=== PATIENT | female | born 1960 | race Caucasian/White ===

== ENCOUNTER 2017-10-10 13:38 | Emergency (ER) | payer MEDICAID, MEDICARE ==
[2017-10-10 13:55] VITALS: BP 151/83
--- NOTE | 2017-10-10 14:04 | UC ---
Skin Complaint HPI - HPI Summary HPI Summary: Patient presents complaining of a rash to both forearms and notes new rash starting to both of her lower legs. Began about a week ago. Began about 2 days after she had been some weeding. She notes the rash is very itchy and she' s been self treating with topical Benadryl and calamine. She denies any short of breath or wheezing. - History of Current Complaint Chief Complaint: UCSkin Time Seen by Provider: 10/10/17 13:54 Stated Complaint: RASH ON ARMS Hx Obtained From: Patient Onset/Duration: Gradual Onset Timing: Constant Pain Intensity: 0 Aggravating Factor(s): Nothing Alleviating Factor(s): Antihistamines Associated Signs & Symptoms: Negative: Fever - Allergy/Home Medications Allergies/Adverse Reactions: Allergies Allergy/AdvReac Type Severity Reaction Status Date / Time amoxicillin [From Augmentin] Allergy Hives Verified 10/10/17 14:00 clavulanic acid Allergy Hives Verified 10/10/17 14:00 [From Augmentin] Home Medications: Home Medications LevoCETirizine TAB (NF) [Xyzal TAB (NF)] 5 mg PO DAILY 10/10/17 [History Confirmed 10/10/17] diPHENhydraMINE 2% CREAM(NF) [Benadryl 2% CREAM (NF)] 1 applic TOPICAL Q6H 10/10 [History Confirmed 10/10/17] Review of Systems Constitutional: Negative Skin: Rash Eyes: Negative ENT: Negative Respiratory: Negative Cardiovascular: Negative Gastrointestinal: Negative Genitourinary: Negative Motor: Negative Neurovascular: Negative Musculoskeletal: Negative Neurological: Negative Psychological: Negative Is Patient Immunocompromised?: No All Other Systems Reviewed And Are Negative: Yes PMH/Surg Hx/FS Hx/Imm Hx Endocrine History: Dyslipidemia Cardiovascular History: Cardiac Disease, Hypertension GI/ History: Gastroesophageal Reflux - Surgical History Surgical History: Yes Surgery Procedure, Year, and Place: coronary bypass surgery in 1990 [place]. neck surgery ACDF/PCDF in [place]. lumbar decompressive laminectomy L4-L5 Mar 2016. ACD AND PLATE PLACEMENT - Family History Known Family History: Positive: Cardiac Disease, Diabetes - Social History Occupation: Disabled Lives: With Family Alcohol Use: Weekly Alcohol Amount: 1-2 drinks per week Substance Use Type: None Smoking Status (MU): Former Smoker Type: Cigarettes Amount Used/How Often: PACK A DAY Length of Time of Smoking/Using Tobacco: 35 years Have You Smoked in the Last Year: No When Did the Patient Quit Smoking/Using Tobacco: 2007 - Immunization History Most Recent Influenza Vaccination: 2016 Most Recent Tetanus Shot: unk Most Recent Pneumonia Vaccination: never Vaccination Up to Date: Yes Physical Exam Triage Information Reviewed: Yes Appearance: Well-Appearing Vital Signs: Initial Vital Signs Temp 97.5 F 10/10/17 13:50 Pulse 81 10/10/17 13:50 Resp 16 10/10/17 13:50 BP 151/83 10/10/17 13:50 Pulse Ox 98 10/10/17 13:50 Eyes: Positive: Conjunctiva Clear ENT: Positive: Pharynx normal, TMs normal. Negative: Nasal congestion, Nasal drainage Neck: Positive: Supple, Nontender, No Lymphadenopathy Respiratory: Positive: Lungs clear, Normal breath sounds Cardiovascular: Positive: RRR, No Murmur Abdomen Description: Positive: Nontender, No Organomegaly, Soft Bowel Sounds: Positive: Present Musculoskeletal: Positive: ROM Intact Neurological: Positive: Alert Psychological: Positive: Age Appropriate Behavior Skin Exam: Normal Skin: Positive: rashes - [place] rash to forearms. Some areas are linear. Some areas are excoriated. Similar rash to both shins. Patient's hands and other areas are covered by clothing are spared. No warmth or drainage. No burrows. Course/Dx - Course Course Of Treatment: Rash is consistent with contact dermatitis. Given duration we will treat with weaning steroid from a Medrol Dosepak. No concern for secondary infection. - Diagnoses Provider Diagnoses: Contact dermatitis forearms and lower legs Discharge - Sign-Out/Discharge Documenting (check all that apply): Discharge/Admit/Transfer - Discharge Plan Condition: Stable Disposition: HOME Prescriptions: methylPREDNISolone [Medrol Dosepak 4 MG*] 0 mg PO .SEE CLARK INSTRUCTION #1 tab Patient Education Materials: Contact Dermatitis (DC) Referrals: Noel Tomas MD [Primary Care Provider] - 7 Days - Billing Disposition and Condition Condition: STABLE Disposition: Home
== END 2017-10-10 14:10 | disposition home or self-care (01) ==
LOC: UCCORT 13:38
DX: L25.5 Unspecified contact dermatitis due to plants, except food (principal); E78.5 Hyperlipidemia, unspecified; I11.9 Hypertensive heart disease without heart failure; K21.9 Gastro-esophageal reflux disease without esophagitis; Z95.5 Presence of coronary angioplasty implant and graft; Z88.1 Allergy status to other antibiotic agents; Z88.0 Allergy status to penicillin; Z82.49 Family history of ischemic heart disease and other diseases of the circulatory system; Z83.3 Family history of diabetes mellitus; Z87.891 Personal history of nicotine dependence
CPT/HCPCS: 99212; G0463

== ENCOUNTER → 2018-05-16 10:35 | Day surgery (SDC) | payer MEDICARE, MEDICAID ==
[~2018-05-16 10:35] MED LIST: Buffered Lidocaine 1% SYRIN* 1 ML/SYRINGE INTRADERM ONE; Clindamycin 900 MG/D5W BAG(*) 900 MG/50 ML BAG IVPB ONE; DiMENhydriNATE IV* 50 MG/ML VIAL IV PUSH PRN; Lactated Ringers 1000 ML Bag* 1,000 ML IV SCH; Lidocaine 1% INJ* 10 MG/ML 30 ML SDV ONE; Midazolam* 1 MG/ML 5 ML VIAL (5 MG) ONE; Morphine VIAL* 4 MG/ML VIAL (1 ml vial) IV PRN; Naloxone* 0.4 MG/ML 1 ML VIAL IV PRN; Ondansetron INJ* 2 MG/ML VIAL IV PRN; PROCHLORPERAZINE INJ 5 MG/ML 2 ML VIAL IV PRN; Propofol* 10 MG/ML 20 ML BTL ONE; ROPIVACAINE 5 MG/ML 30 ML BTL (0.5%) ONE; Ropivacaine* 2 MG/ML 20 ML VIAL (0.2%) ONE; fentaNYL* 50 MCG/ML 2 ML VIAL (100 MCG VIAL) IV PRN; fentaNYL* 50 MCG/ML 2 ML VIAL (100 MCG VIAL) ONE; oxyCODONE/Acetamin 5/325 MG* TAB PO PRN
[2018-05-16 15:04] VITALS: BP 122/92
--- NOTE | 2018-05-16 20:34 | OP ---
DATE OF OPERATION: 05/16/18 - [facility] DATE OF : 56 SURGEON: Jose Manuel Ahumada MD ASSISTANT TO THE PRESIDENT: None. ANESTHESIOLOGIST: Dr. Beasley. ANESTHESIA: Local MAC. PRE-OP DIAGNOSIS: Post laminectomy syndrome. POST-OP DIAGNOSIS: Post laminectomy syndrome. OPERATIVE PROCEDURE: Percutaneous dorsal column stimulator trial lead placement. BRIEF PREOPERATIVE NOTE: The patient is a 58-year-old female who has been followed in the [facility] for post-laminectomy syndrome. The patient had not done well with conservative care for long-term relief of her pain, so it was decided to proceed with dorsal column stimulator as a means to manage her pain. The patient and I had discussed in the office as well as again today the procedure in detail, the risks, benefits, and alternatives including the risks of postdural puncture headache, bleeding, infection, failure of the device to work, and nerve injury. After discussing these risks, benefits, and alternatives, informed consent was obtained. DESCRIPTION OF PROCEDURE: The patient was brought to the operative suite, placed prone on the operative table. Her back was prepped and draped in the usual sterile fashion. Using fluoroscopy, I identified the T12-L1 interspace. I then anesthetized the skin and subcutaneous tissue over the pedicle of T2 on the right and left sides using 0.2% ropivacaine mixed with 1% lidocaine. Using an 11-blade, a skin hanna was made. I then used a 14-gauge Coude epidural needle to identify the epidural space using loss of resistance to air technique. There was no CSF, blood, or paresthesias noted. There was negative aspiration. A 16-contact [employer] lead was then passed into the epidural space and guided to the right of midline covering the T7, 8, and 9 vertebral bodies. A lateral fluoroscopic view was obtained which showed good posterior placement in the epidural space. I then made another skin hanna with an 11-blade to the left of midline over the L2 pedicle, and again using a 14-gauge Coude epidural needle, I directed under fluoroscopic guidance to the T12- L1 interspace and identified the epidural space using loss of resistance to air technique. There was no CSF, blood, or paresthesias noted. There was negative aspiration. I proceeded to pass a 16-contact [employer] lead into the epidural space and guided it parallel to the other lead covering the T7, 8, and 9 vertebral bodies. A lateral fluoroscopic view was taken which showed good posterior placement in the epidural space. A stimulation was then done with the [employer] customer solutions representative and good coverage was noted with the leads as they were placed. The stylets and needles were withdrawn. The anchors were placed over the leads and sutured to the skin using 2-0 Prolene sutures. The 0-silk suture was then used to cinch the anchor and boot together. Steri-Strips were applied. Sterile dressing placed over the leads and a large Tegaderm was placed to cover the wires and extensions. The patient was then brought to the recovery area where her stimulator will be programmed by the [employer] customer solutions representative. She will follow up with us in the office as scheduled. She will call with any questions or concerns before that time. [id number]/[facility] #: [id number] AMRITA
== END | disposition home or self-care (01) ==
LOC: OR 10:35
PROVIDERS: ATTEND Anesthesiology Pain Medicine
DX: M96.1 Postlaminectomy syndrome, not elsewhere classified (principal); M54.16 Radiculopathy, lumbar region; I10 Essential (primary) hypertension; F41.8 Other specified anxiety disorders; E78.00 Pure hypercholesterolemia, unspecified; K21.9 Gastro-esophageal reflux disease without esophagitis; I25.10 Atherosclerotic heart disease of native coronary artery without angina pectoris; I25.2 Old myocardial infarction; Z95.1 Presence of aortocoronary bypass graft
CPT/HCPCS: 76000; C1897; J2250; J2704; J2795; J3010

== ENCOUNTER 2018-07-27 11:23 | Day surgery (SDC) | payer MEDICARE, MEDICAID ==
[~2018-07-27 11:23] MED LIST changes: -Clindamycin 900 MG/D5W BAG(*) 900 MG/50 ML BAG IVPB ONE; +Dexamethasone IV* 4 MG/ML 1 ML (4 MG) IV SLOW PU ONE; -DiMENhydriNATE IV* 50 MG/ML VIAL IV PUSH PRN; +Famotidine IV* 10 MG/ML 2 ML (20 mg) IV ONE; -Lidocaine 1% INJ* 10 MG/ML 30 ML SDV ONE; -Midazolam* 1 MG/ML 5 ML VIAL (5 MG) ONE; -Morphine VIAL* 4 MG/ML VIAL (1 ml vial) IV PRN; -Naloxone* 0.4 MG/ML 1 ML VIAL IV PRN; -Ondansetron INJ* 2 MG/ML VIAL IV PRN; -PROCHLORPERAZINE INJ 5 MG/ML 2 ML VIAL IV PRN; -Propofol* 10 MG/ML 20 ML BTL ONE; -ROPIVACAINE 5 MG/ML 30 ML BTL (0.5%) ONE; -Ropivacaine* 2 MG/ML 20 ML VIAL (0.2%) ONE; -fentaNYL* 50 MCG/ML 2 ML VIAL (100 MCG VIAL) IV PRN; -fentaNYL* 50 MCG/ML 2 ML VIAL (100 MCG VIAL) ONE; -oxyCODONE/Acetamin 5/325 MG* TAB PO PRN
[2018-07-27] MEDS ORDERED: Famotidine IV* 10 MG/ML 2 ML (20 mg) ONE (12:03)
[2018-07-27] MEDS ORDERED: Dexamethasone IV* 4 MG/ML 1 ML (4 MG) ONE (12:03)
[2018-07-27] MEDS ORDERED: Buffered Lidocaine 1% SYRIN* 1 ML/SYRINGE INTRADERM ONE (12:03)
[2018-07-27] MEDS ORDERED: Clindamycin 900 MG IVPREMIX(* 900 MG/50 ML SDV IV ONE (12:04)
[2018-07-27] MEDS ORDERED: Vancomycin(*) 1,000 MG VIAL ONE (13:55)
[2018-07-27] MEDS ORDERED: Gentamicin ADULT (*) 40 MG/ML VIAL (2 ML VIAL = 80 MG) ONE (13:55)
[2018-07-27] MEDS ORDERED: ceFAZolin VIAL(*) VIAL ONE (13:55)
[2018-07-27] MEDS ORDERED: Bupivacaine 0.25% SDV PF* 10 ML VIAL INJ ONE (13:56)
[2018-07-27] MEDS ORDERED: Bacitracin INJECTION* 50,000 UNITS ONE (13:56)
[2018-07-27] MEDS ORDERED: KETAMINE HCL* 50 MG/ML 10 ML VIAL ONE (13:58)
[2018-07-27] MEDS ORDERED: fentaNYL* 50 MCG/ML 2 ML VIAL (100 MCG VIAL) ONE (13:58)
[2018-07-27] MEDS ORDERED: Midazolam* 1 MG/ML 5 ML VIAL (5 MG) ONE (13:58)
[2018-07-27] MEDS ORDERED: Lidocaine 1% INJ* 10 MG/ML 30 ML SDV ONE (14:12)
[2018-07-27] MEDS ORDERED: Midazolam* 1 MG/ML 2 ML VIAL (2 MG) ONE (14:36)
[2018-07-27] MEDS ORDERED: Propofol* 10 MG/ML 20 ML BTL ONE ×2 (14:46→16:16)
[2018-07-27] MEDS ORDERED: Lidocaine 2% PF * 5 ML VIAL ONE (14:47)
[2018-07-27] MEDS ORDERED: hydrALAZINE IV* 20 MG/ML VIAL ONE (15:20)
[2018-07-27] MEDS ORDERED: Bupivacaine 0.5%* 50 ML VIAL ONE (16:24)
[2018-07-27 18:35] VITALS: BP 132/86
--- NOTE | 2018-07-28 03:05 | OP ---
CC: Pain Clinic OPERATIVE REPORT: DATE OF OPERATION: 07/27/18 DATE OF : 56 SURGEON: Dr. Jose Manuel Ahumada. ANESTHESIOLOGIST: Dr. Almanza. ANESTHESIA: Local MAC. PRE-OP DIAGNOSIS: Postlaminectomy syndrome. POST-OP DIAGNOSIS: Postlaminectomy syndrome. OPERATIVE PROCEDURE: Permanent placement of dorsal column stimulator leads and generator. BLOOD LOSS: Minimal. INDICATIONS: The patient is a 58-year-old female who is scheduled today to undergo permanent dorsal column stimulator placement for postlaminectomy syndrome. The patient did very well with dorsal colu mn stimulator trial and is scheduled today to undergo the procedure. Risks, benefits, and alternativ es were discussed with her. Informed consent was obtained. The risks of post dural puncture headache , bleeding, infection, hematoma, failure of the device to work, nerve injury were all discussed with the patient and she was in agreement to proceed. DESCRIPTION OF PROCEDURE: The patient was brought to the operative suite, placed prone on the operat venice table. Her back was prepped and draped in the usual sterile fashion. Using fluoroscopy, I ident ified the L1-2 spinous processes and anesthetized the skin and subcutaneous tissues over that area wi th 1% lidocaine mixed with 0.25% bupivacaine. A 15-blade was used to make a skin incision over the L 1-2 spinous processes. I then dissected down to the spinous processes and hemostasis was obtained wi th electrocautery. Using a 14-gauge Coude needle, I directed under fluoroscopic guidance to the L1-2 interspace. I identified the epidural space using of loss of resistance to air technique. There wa s no CSF, blood, or paresthesias noted. There was negative aspiration. I proceeded to pass the 8-co ntact [employer] Linear lead into that epidural space and guided it to the T7 vertebral body. I, then using another 14-gauge needle, directed under the fluoroscopic guidance to the L1-2 interspa ce. I identified the epidural space using loss of resistance to air technique. There was no CSF, bl ood, or paresthesia noted. There was negative aspiration. I proceeded to pass another [employer] 8-contact Linear lead into the epidural space and guided it to lie parallel to the other lead at the T7 vertebral body. I checked the lateral fluoroscopic projection, which showed posterior placem ent in the epidural space. I then proceeded to test the leads and unfortunately, we were getting sti mulation up in the patient's chest area, so the leads were brought down to lie over the T8 vertebral bodies. Testing was done at that level, which we had good coverage of the patient's pain area across her back. Another lateral fluoroscopic projection was taken, which showed good posterior epidural p lacement of the leads. The leads were then anchored into the interspinous ligament using the [employer] an chor and the white right lead was anchored using the Fix8 fixation system. The left lead was anchore d using 2-0 silk sutures tied to the interspinal ligament. Audible clicks were heard on each anchor as they were tightened. I then focused on the right flank for the IPG pocket placement. The templat e was used to identify the area for the IPG. I then used 1% lidocaine and 0.25% bupivacaine to anest hetize the skin and subcutaneous tissues over the area of the pocket. A 15-blade was used to make a transverse skin incision and dissection was done to create a pocket using blunt dissection, electroca utery, and Metzenbaum scissors. The wound was then packed with antibiotic irrigant sponges. A [employer] device was then used to tunnel to the midline incision from the pocket. The leads were then pas sed into the pocket area and a retention loop was placed at the midline incision using a 0 silk sutur e. I then removed the sponges and electrocautery was used to confirm hemostasis. The generator was t hen placed into the pocket, which was then irrigated copiously with antibiotic irrigant solution as w ell as irrigating the midline incision with antibiotic irrigant. Approximately 250 mg of vancomycin powder was placed in the midline incision as well as the pocket and the midline incision was closed w ith deep 2-0 interrupted Polysorb suture, followed by more superficial interrupted 3-0 Polysorb sutur es, and finally, the skin was closed using a 4-0 Polysorb subcuticular closure. Dermabond was placed followed by Steri-Strips. The pocket incision was closed with interrupted 2-0 Polysorb sutures, fol lowed by more superficial interrupted 3-0 Polysorb sutures, followed by running 4-0 Polysorb subcutic ular skin closure. Dermabond was placed as well as Steri-Strips. Sterile dressings and Tegaderm wer e placed over both wounds and the patient was brought to the recovery room in stable condition, where her stimulator will be programmed by the [employer] customer field representative. She will follow up with us in the Pain Clinic as scheduled for followup visit and she will call with any questions or concern s. [id number]/[facility] #: [id number]
== END 2018-07-27 18:30 | disposition home or self-care (01) ==
LOC: OR 11:23
PROVIDERS: ATTEND Anesthesiology Pain Medicine
DX: M96.1 Postlaminectomy syndrome, not elsewhere classified (principal); I10 Essential (primary) hypertension; E78.5 Hyperlipidemia, unspecified; I25.10 Atherosclerotic heart disease of native coronary artery without angina pectoris; I25.2 Old myocardial infarction; K21.9 Gastro-esophageal reflux disease without esophagitis; F41.8 Other specified anxiety disorders; Z95.1 Presence of aortocoronary bypass graft
CPT/HCPCS: 77003; A9270-GY; C1713; C1778; C1787; C1820; J0360; J0690; J1100; J1580; J2250; J2704; J3010; J3370; J3490

== ENCOUNTER 2019-12-26 10:27 | Inpatient (IN) ==
[~2019-12-26 10:27] MED LIST changes: +Buffered Lidocaine 1% SYRIN 1 ml INTRADERM ONE; -Buffered Lidocaine 1% SYRIN* 1 ML/SYRINGE INTRADERM ONE; +Dexamethasone IV 4 MG/ML VIAL 1 ml VIAL IV SLOW PU ONE; -Dexamethasone IV* 4 MG/ML 1 ML (4 MG) IV SLOW PU ONE; +Famotidine IV 10 MG/ML 2 ml VIAL (20 mg) IV ONE; -Famotidine IV* 10 MG/ML 2 ML (20 mg) IV ONE; -Lactated Ringers 1000 ML Bag* 1,000 ML IV SCH; +Lactated Ringers 1000 ml BAG 1,000 ML IV SCH; +Lidocaine 2% PF 5 ML VIAL ONE; +Midazolam 2 mg/2 ml VIAL 1 mg/ml 2 ml VIAL (2 mg) ONE; +Ondansetron 4 mg VIAL 2 MG/ML 2 ml VIAL ONE; +Propofol 10 MG/ML 20 ML BTL ONE; +Remifentanil 2 MG VIAL ONE; +Rocuronium 50 mg VIAL 10 mg/ml 5 ml VIAL (50 mg) ONE; +Succinylcholine 200 mg VIAL 20 mg/ml 10 ml VIAL (200 mg) ONE; +Vancomycin 1,250 MG in NS 0.9% 250 ml 250 ML IVPB SCH; +fentaNYL 250 mcg/5 ml 50 MCG/ML 5 ml VIAL (250 MCG) ONE
[2019-12-26] MEDS ORDERED: Famotidine IV 10 MG/ML 2 ml VIAL (20 mg) ONE (10:42)
[2019-12-26] MEDS ORDERED: Buffered Lidocaine 1% SYRIN 1 ml INTRADERM ONE (10:42)
[2019-12-26] MEDS ORDERED: Dexamethasone IV 4 MG/ML VIAL 1 ml VIAL ONE ×2 (10:42→12:12)
[2019-12-26] MEDS ORDERED: Bacitracin INJECTION 50,000 UNITS ONE (11:05)
[2019-12-26] MEDS ORDERED: Bupivacaine 0.25% SDV 30 ML ONE (11:05)
[2019-12-26] MEDS ORDERED: Remifentanil 2 MG VIAL ONE (13:42)
[2019-12-26] MEDS ORDERED: HYDROmorphone 1 MG/1 ML SYRINGE ONE ×2 (13:55→16:20)
[2019-12-26] MEDS ORDERED: EPHEDrine (Pressors) 50 MG/ML VIAL ONE (15:47)
[2019-12-26] MEDS ORDERED: HYDROcodone/ACETAMIN 5/325 mg TAB PO PRN ×3 (16:11→17:09)
[2019-12-26] MEDS ORDERED: Naloxone 0.4 mg VIAL 0.4 mg/ml 1 ml VIAL IV PRN (16:11)
[2019-12-26] MEDS ORDERED: Ondansetron 4 mg VIAL 2 MG/ML 2 ml VIAL IV PRN ×2 (16:11)
[2019-12-26] MEDS: HYDROmorphone 1 MG/1 ML SYRINGE IV PRN ×5 (16:20→16:48)
[2019-12-26] MEDS ORDERED: fentaNYL 100 mcg/2 ml 50 MCG/ML VIAL ONE (16:45)
[2019-12-26] MEDS: fentaNYL 100 mcg/2 ml 50 MCG/ML VIAL IV PRN ×4 (16:45→17:06)
[2019-12-26] MEDS ORDERED: HYDROcodone/ACETAMIN 5/325 mg TAB ONE (17:20)
[2019-12-26] MEDS: Magnesium Hydroxide LIQ 30 ML UDC PO PRN (18:49)
[2019-12-26] MEDS: Nystatin TOP POWDER 15 GM BTL TOPICAL SCH ×2 (18:51→21:03)
[2019-12-26] MEDS: Senna TAB 8.6 mg TAB PO SCH (21:02)
[2019-12-27] MEDS: Nystatin TOP POWDER 15 GM BTL TOPICAL SCH ×3 (07:29→21:37)
[2019-12-27] MEDS: Magnesium Hydroxide LIQ 30 ML UDC PO PRN (07:31)
[2019-12-27] MEDS: Senna TAB 8.6 mg TAB PO SCH (21:37)
[2019-12-28] MEDS: Nystatin TOP POWDER 15 GM BTL TOPICAL SCH ×3 (08:10→21:42)
[2019-12-28] MEDS: Magnesium Hydroxide LIQ 30 ML UDC PO PRN (08:18)
[2019-12-28] MEDS: HYDROcodone/ACETAMIN 5/325 mg TAB PO PRN ×3 (12:17→21:40)
[2019-12-28] MEDS: Senna TAB 8.6 mg TAB PO SCH (21:39)
[2019-12-29] MEDS: HYDROcodone/ACETAMIN 5/325 mg TAB PO PRN ×2 (03:54→11:53)
[2019-12-29] MEDS: Nystatin TOP POWDER 15 GM BTL TOPICAL SCH (11:53)
[2019-12-29 12:13] VITALS: BP 103/51
== END 2019-12-29 13:40 | disposition home health service (06) | DRG 460 ==
LOC: AA 10:27 → SSU 17:56
PROVIDERS: ADMIT Neurological Surgery; ATTEND Neurological Surgery

== ENCOUNTER 2020-01-02 12:41 | Observation (INO) ==
[2020-01-02 13:49] LABS: ABS Eosinophils 0.3 10^3/ul (0-0.6); ABS Monocytes 0.9 10^3/ul (0-0.8); ABS Neutrophils 5.5 10^3/ul (1.5-7.7); Eosinophil % 3.6 %; Hematocrit 37 % (35-47); Hemoglobin 12.5 g/dL (12.0-16.0); Lymphocyte % 12.8 %; Mean Corpuscular HGB Conc 34 g/dL (31-36); Mean Corpuscular Hemoglobin 30 pg (27-31); Mean Corpuscular Volume 87 fL (80-97); Mean Platelet Volume 8.2 fL (7.4-10.4); Platelet Count 270 10^3/uL (150-450); Red Blood Count 4.19 10^6 /uL (3.70-4.87); Red Cell Distribution Width 15 % (10-15); White Blood Count 7.6 10^3/uL (3.5-10.8)
[2020-01-02 14:04] LABS: Calcium 9.4 mg/dL (8.6-10.3); EGFR African American 22.6 (>60); EGFR Non-African American 18.7 (>60); Influenza A Molecular Negative (Negative); Influenza B Molecular Negative (Negative); Potassium 4.5 mmol/L (3.5-5.0)
[2020-01-02] MEDS ORDERED: Lactated Ringers 1000 ml BAG 1,000 ML IV ONE (15:12)
[2020-01-02] MEDS ORDERED: HYDROcodone/ACETAMIN 5/325 mg TAB PO ONE (15:40)
[2020-01-02] MEDS ORDERED: Lactated Ringers 1000 ml BAG 500 ML IV ONE (15:48)
[2020-01-02 18:08] LABS: BUN/Creatinine Ratio 16.1 (8-20); Calcium 8.8 mg/dL (8.6-10.3); EGFR African American 25.3 (>60); EGFR Non-African American 20.9 (>60)
[2020-01-02] MEDS ORDERED: NS 0.9% 1000 ml BAG 1,000 ML IV SCH (19:30)
[2020-01-02] MEDS ORDERED: Ondansetron 4 mg VIAL 2 MG/ML 2 ml VIAL IV PRN (19:34)
[2020-01-02] MEDS ORDERED: Senna TAB 8.6 mg TAB PO PRN (19:34)
[2020-01-02 20:14] LABS: Albumin 3.9 g/dL (3.2-5.2); Albumin/Globulin Ratio 1.3 (1-3); Globulin 2.9 g/dL (2-4); Indirect Bilirubin 0.5 mg/dL (0.3-1.0); Total Bilirubin 0.7 mg/dL (0.2-1.0); Total Protein 6.8 g/dL (6.4-8.9)
[2020-01-02] MEDS: Heparin 5000 UNITS/ML 1 mL VIAL SUBCUT SCH (23:40)
[2020-01-02] MEDS: HYDROcodone/ACETAMIN 5/325 mg TAB PO PRN (23:51)
[2020-01-03] MEDS: HYDROcodone/ACETAMIN 5/325 mg TAB PO PRN ×3 (04:25→19:58)
[2020-01-03] MEDS: Heparin 5000 UNITS/ML 1 mL VIAL SUBCUT SCH ×3 (04:52→23:48)
[2020-01-03] MEDS: Aspirin EC 81 mg TAB.EC (enteric coated) PO SCH (09:00)
[2020-01-03 10:04] LABS: Albumin 3.5 g/dL (3.2-5.2); Calcium 8.4 mg/dL (8.6-10.3); Potassium 4.3 mmol/L (3.5-5.0); Total Bilirubin 0.5 mg/dL (0.2-1.0)
[2020-01-03 10:10] LABS: Albumin/Globulin Ratio 1.2 (1-3); BUN/Creatinine Ratio 17.1 (8-20); EGFR African American 34.4 (>60); EGFR Non-African American 28.4 (>60); Total Protein 6.5 g/dL (6.4-8.9)
[2020-01-03 10:26] LABS: ABS Eosinophils 0.2 10^3/ul (0-0.6); ABS Lymphocytes 1.1 10^3/ul (1.0-4.8); ABS Monocytes 0.6 10^3/ul (0-0.8); ABS Neutrophils 3.2 10^3/ul (1.5-7.7); Eosinophil % 3.7 %; Hematocrit 34 % (35-47); Hemoglobin 10.8 g/dL (12.0-16.0); Lymphocyte % 21.8 %; Mean Corpuscular HGB Conc 32 g/dL (31-36); Mean Corpuscular Hemoglobin 29 pg (27-31); Mean Corpuscular Volume 92 fL (80-97); Mean Platelet Volume 8.3 fL (7.4-10.4); Nucleated Red Blood Cells % 0.1; Platelet Count 178 10^3/uL (150-450); Red Blood Count 3.71 10^6 /uL (3.70-4.87); Red Cell Distribution Width 15 % (10-15); White Blood Count 5.1 10^3/uL (3.5-10.8)
[2020-01-03 13:15] LABS: Urine Creatinine Concentration 87.05 mg/dL
[2020-01-04] MEDS: Heparin 5000 UNITS/ML 1 mL VIAL SUBCUT SCH ×2 (06:53→14:41)
[2020-01-04] MEDS: HYDROcodone/ACETAMIN 5/325 mg TAB PO PRN ×2 (07:59→12:30)
[2020-01-04] MEDS: Aspirin EC 81 mg TAB.EC (enteric coated) PO SCH (08:01)
[2020-01-04 09:32] LABS: BUN/Creatinine Ratio 15.6 (8-20); Calcium 9.2 mg/dL (8.6-10.3); EGFR African American 39.7 (>60); EGFR Non-African American 32.8 (>60); Potassium 4.2 mmol/L (3.5-5.0)
[2020-01-04 12:34] VITALS: BP 100/65
[2020-01-04] MEDS ORDERED: Nystatin TOP POWDER 15 GM BTL TOPICAL SCH (13:25)
== END 2020-01-04 14:10 | disposition home or self-care (01) ==
LOC: MED 12:41 → ED 12:41 → MED 23:24
PROVIDERS: ADMIT Student in an Organized Health Care Education/Training Program; ATTEND Internal Medicine